=== PATIENT | male | born 1970 | race Caucasian/White ===

== ENCOUNTER 2017-05-09 09:50 | Emergency (ER) | payer BC ==
[2017-05-09 10:14] VITALS: BP 122/85
--- NOTE | 2017-05-09 10:31 | EDM.PDOC ---
ED HPI GENERAL MEDICAL PROBLEM - General Chief Complaint: Upper Extremity Injury/Pain Stated Complaint: L FINGER INJURY Time Seen by Provider: 05/09/17 10:30 Source of Information: Reports: Patient - History of Present Illness INITIAL COMMENTS - FREE TEXT/NARRATIVE: Patient is here accompanied by his for evaluation of an injury to his left ring finger. He states that last night he got his hand pinched between a cow and a wooden post, he did have a sliver in his pinky which she removed without difficulty but this is not painful at all today. He states that he is having pain to his left distal ring finger and DIPJ and he feels like there is a foreign body in there. He states that it is painful and stiff when he moves it. He does feel that it is swollen. He is not up-to-date on his tetanus. Left 4-Ring finger Pain Score (Numeric/FACES): 1 - Related Data Allergies Allergy/AdvReac Type Severity Reaction Status Date / Time No Known Allergies Allergy Verified 05/09/17 10:14 Home Meds: Home Meds Albuterol [Ventolin HFA] 2 puff INH DAILY PRN 11/24/14 [History] Cetirizine [ZyrTEC] 1 tab PO DAILY 11/24/14 [History] Montelukast [Singulair] 1 tab PO DAILY 11/24/14 [History] Cephalexin [Keflex] 500 mg PO BID #10 capsule 05/09/17 [Rx] Past Medical History - Past Health History Medical/Surgical History: Denies Medical/Surgical History HEENT History: Reports: Impaired Vision Respiratory History: Reports: Asthma Social & Family History - Family History Family Medical History: Noncontributory - Tobacco Use Smoking Status *Q: Never Smoker - Recreational Drug Use Recreational Drug Use: No Review of Systems - Review of Systems Review Of Systems: See Below Constitutional: Denies: Chills, Fever, Weakness Cardiovascular: Reports: No Symptoms GI/Abdominal: Reports: No Symptoms Musculoskeletal: Reports: Other (Pain to left ring finger) Skin: Reports: Other (Puncture wound to left ring finger) Neurological: Reports: No Symptoms Psychiatric: Reports: No Symptoms ED EXAM, GENERAL - Physical Exam Exam: See Below Exam Limited By: No Limitations General Appearance: Alert, WD/WN, No Apparent Distress Cardiovascular: Normal Peripheral Pulses Peripheral Pulses: 2+: Radial (L) Extremities: Other (Mild swelling to distal left ring finger without warmth or erythema. There is a tiny eschar over what he states was a puncture. Patient has limited flexion at the DIPJ of his left ring finger.) Neurological: Alert, Oriented, No Motor/Sensory Deficits Skin Exam: Warm, Dry, Wound/Incision (Very tiny puncture woun to pad of left ring finger without surrounding warmth or erythema. There is no drainage.) Course - Vital Signs Last Recorded V/S: Last Vital Signs Temp 98.9 F 05/09/17 10:00 Pulse 59 L 05/09/17 10:00 Resp 16 05/09/17 10:00 BP 122/85 05/09/17 10:00 Pulse Ox 96 05/09/17 10:00 - Orders/Labs/Meds Orders: Active Orders 24 hr Category Date Time Status Vaccines to be Administered [RC] PER UNIT ROUTINE Care 05/09/17 10:59 Active Fingers Fourth Digit Lt F3 [CR] Stat Exams 05/09/17 10:59 Taken Meds: Medications Discontinued Medications Generic Name Dose Route Start Last Admin Trade Name Freq PRN Reason Stop Dose Admin Diphtheria/Tetanus/Acell Pertussis 0.5 ml 05/09/17 10:59 Adacel IM 05/09/17 11:00 .ONCE ONE - Re-Assessments/Exams Free Text/Narrative Re-Assessment/Exam: Small puncture to left ring finger but no foreign body is visible or palpable. Will get x-ray to further assess, though if he suspects that this is wood it may be difficult to visualize on x-ray. Patient declines pain medication. Tdap booster will be given. 05/09/17 11:05 No foreign body or fracture visualized on x-ray of left fourth finger. Official radiologist report is pending. I do not palpate foreign body to do not feel that exploring the wound is indicated. Due to the nature of injury will put patient on Keflex 5 days. Recommend Epsom salt soaks. Wound care instructions discussed and monitoring for infection was discussed and patient, he and his verbalized understanding of this. Ibuprofen as needed for pain. He will follow-up with his primary provider or return to the emergency room if needed. 05/09/17 11:57 Departure - Departure Time of Disposition: 11:47 Disposition: Home, Self-Care 01 Condition: Good Clinical Impression: Finger injury Qualifiers: Encounter type: initial encounter Laterality: left Qualified Code(s): S69.92XA - Unspecified injury of left wrist, hand and finger(s), initial encounter - Discharge Information Prescriptions: Cephalexin [Keflex] 500 mg PO BID #10 capsule Referrals: Kingsley Mcclain MD [Primary Care Provider] - Forms: ED Department Discharge Additional Instructions: Keep area clean and dry. Take full course of antibiotics, twice daily for 5 days. I recommend a probiotic or yogurt with this to prevent diarrhea. Ibuprofen 600 mg 3 times daily as needed. Soak in Epsom salts soaks in warm water 15 minutes twice daily. Follow-up through primary provider or return to emergency room if symptoms persist or any worsening or you have a fever greater than 101F. - My Orders Last 24 Hours: My Active Orders 05/09/17 10:59 Vaccines to be Administered [RC] PER UNIT ROUTINE Fingers Fourth Digit Lt F3 [CR] Stat - Assessment/Plan Last 24 Hours: My Active Orders 05/09/17 10:59 Vaccines to be Administered [RC] PER UNIT ROUTINE Fingers Fourth Digit Lt F3 [CR] Stat
[2017-05-09] MEDS ORDERED: Diphtheria,Pertussis(Acell),Tetanus Vaccine 0.5 ML SDV IM ONE (10:59)
--- NOTE | 2017-05-11 16:54 | CR ---
Left fourth finger: Four views centered to the left fourth finger were obtained. Comparison: No previous hand or finger study. Soft tissue swelling is identified. No radiopaque foreign object is seen. No fracture or other bony abnormality is identified. Impression: 1. Soft tissue swelling. No bony abnormality is identified on left fourth finger study. Diagnostic code #3
== END 2017-05-09 12:03 | disposition home or self-care (01) ==
LOC: JD.ED 09:50
DX: S61.235A Puncture wound without foreign body of left ring finger without damage to nail, initial encounter (principal); J45.909 Unspecified asthma, uncomplicated; Z23 Encounter for immunization; Z79.899 Other long term (current) drug therapy; W23.0XXA Caught, crushed, jammed, or pinched between moving objects, initial encounter
CPT/HCPCS: 73140-26-F3; 73140-F3; 90471; 90715; 99283; 99283-25

== ENCOUNTER 2020-04-30 09:55 | Emergency (ER) | payer BC ==
--- NOTE | 2020-04-30 10:28 | EDM.PDOC ---
ED HPI GENERAL MEDICAL PROBLEM - General Chief Complaint: Respiratory Problem Stated Complaint: ASTHMA Time Seen by Provider: 04/30/20 10:22 Source of Information: Reports: Patient History Limitations: Reports: No Limitations - History of Present Illness INITIAL COMMENTS - FREE TEXT/NARRATIVE: 49-year-old male who suffers from asthma presents to the ED with an asthma exacerbation. 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 Patient usually uses albuterol inhaler on a daily basis. Lately has not been working very well. He could not sleep at all last night due to congestion and wheezing. Cough is bringing up some white sputum. No hemoptysis. He has mild nasal congestion. No known COVID-19 illness. He has had no fever or chills. Usually experiences a flareup once or twice per year. Usually requires steroids to settle things down. Onset: Gradual Onset Date: 04/27/20 Duration: Day(s):, Getting Worse Location: Reports: Chest (Just of breath with wheezing.) Quality: Reports: Other (Dyspnea and wheezing) Severity: Moderate (Moderate to severe at times) Improves with: Reports: Rest Worsens with: Reports: Other Context: Reports: Other (History of asthma). Denies: Activity, Exercise, Lifting, Sick Contact (Assertion.), Trauma Associated Symptoms: Reports: Cough, cough w sputum (Sputum. No hemoptysis), Malaise, Shortness of Breath. Denies: Confusion (. 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 Treatments, Other (see below) (Xopenex and albuterol inhalers.) - Related Data Allergies Allergy/AdvReac Type Severity Reaction Status Date / Time No Known Allergies Allergy Verified 04/30/20 10:21 Home Meds: Home Meds Albuterol [Ventolin HFA] 2 puff INH DAILY PRN 11/24/14 [History] Cetirizine [ZyrTEC] 1 tab PO DAILY 11/24/14 [History] Montelukast [Singulair] 1 tab PO DAILY 11/24/14 [History] Doxycycline [Vibra-Tabs] 100 mg PO Q12HR #20 tab 04/30/20 [Rx] Fluticasone/Vilanterol [Breo Ellipta 100-25 MCG Inhalation Kit] 1 puff INH DAILY 04/30/20 [History] Levalbuterol Tartrate [Xopenex HFA] 2 puff INH Q6HR PRN 04/30/20 [History] predniSONE [Prednisone] 20 mg PO ASDIRECTED #18 tablet 04/30/20 [Rx] Past Medical History - Past Health History Medical/Surgical History: Denies Medical/Surgical History HEENT History: Reports: Impaired Vision Respiratory History: Reports: Asthma Social & Family History - Family History Family Medical History: No Pertinent Family History - Living Situation & Occupation Living situation: Reports: Occupation: Employed (Self Employed [employer] ED ROS GENERAL - Review of Systems Review Of Systems: See Below Constitutional: Reports: Fatigue. Denies: Fever, Chills, Malaise, Weakness, Night Sweats, Diaphoresis, Decreased Appetite (Sleeping all night.), Weight Loss HEENT: Reports: Other Respiratory: Reports: Shortness of Breath, Wheezing, Cough. Denies: Pleuritic Chest Pain, Hemoptysis (80 sputum), Other Cardiovascular: Reports: Dyspnea on Exertion. Denies: Chest Pain, Blood Pressure Problem, Claudication, Edema, Lightheadedness, Orthopnea, Palpitations Endocrine: Reports: Fatigue GI/Abdominal: Reports: No Symptoms : Reports: No Symptoms Musculoskeletal: Reports: Back Pain, Joint Pain Skin: Reports: No Symptoms (Hips knees and shoulders at times.) Neurological: Reports: No Symptoms Psychiatric: Reports: No Symptoms Hematologic/Lymphatic: Reports: No Symptoms Immunologic: Reports: No Symptoms ED EXAM, GENERAL - Physical Exam Exam: See Below Exam Limited By: No Limitations General Appearance: Alert, WD/WN, Mild Distress, Other (Temperature is 36.6 degrees heart rate 72 in sinus respiratory is 15. BP is 130/83 with 96% O2 sats.) Eye Exam: Bilateral Eye: Normal Inspection, PERRL (No scleral icterus or blepharal pallor.) Ears: Normal TMs Nose: Other (He does have bilateral turbinate swelling worse on the right as compared to the left particular the superior mid middle turbinates.) Throat/Mouth: Normal Inspection ( No mucus appreciated), Normal Lips, Normal Teeth, Normal Oropharynx Head: Atraumatic, Normocephalic Neck: Normal Inspection, Supple, Non-Tender, Full Range of Motion. No: Lymphadenopathy (L), Lymphadenopathy (R) Respiratory/Chest: No Respiratory Distress, No Accessory Muscle Use, Decreased Breath Sounds, Wheezing (Fuhs wheezing through all 5 lung masters. Worse in the upper and lower lung masters posteriorly.). No: Lungs Clear Cardiovascular: Normal Peripheral Pulses, Regular Rate, Rhythm, No Edema, No Gallop, No Murmur, No Rub Peripheral Pulses: 3+: Carotid (L), Carotid (R), Posterior Tibial (L), Posterior Tibial (R), Dorsalis Pedis (L), Dorsalis Pedis (R) GI/Abdominal: Normal Bowel Sounds, Soft, Non-Tender, No Organomegaly, No Mass, Pelvis Stable Back Exam: Normal Inspection, Full Range of Motion. No: CVA Tenderness (L), CVA Tenderness (R) Extremities: Normal Inspection, Normal Range of Motion, Non-Tender, No Pedal Edema Neurological: Alert, Oriented, CN II-XII Intact, Normal Cognition Psychiatric: Normal Affect, Normal Mood Skin Exam: Warm, Dry, Intact, Normal Color, No Rash Course - Vital Signs Last Recorded V/S: Last Vital Signs Temp 36.6 C 04/30/20 10:18 Pulse 72 04/30/20 10:18 Resp 15 04/30/20 10:18 BP 130/83 04/30/20 10:18 Pulse Ox 94 L 04/30/20 10:42 - Orders/Labs/Meds Orders: Active Orders 24 hr Category Date Time Status RT Aerosol Therapy [RC] ASDIRECTED Care 04/30/20 10:29 Active Chest 1V Frontal [CR] Stat Exams 04/30/20 10:28 Taken Albuterol/Ipratropium [DuoNeb 3.0-0.5 MG/3 ML] Med 04/30/20 10:29 Active 3 ml NEB Q4H PRN Medication Orders Albuterol/Ipratropium (Duoneb 3.0-0.5 Mg/3 Ml) 3 ml NEB Q4H PRN PRN Reason: Shortness Of Breath/wheezing Last Admin: 04/30/20 10:41 Dose: 3 ml Documented by: IAN Meds: Medications Generic Name Dose Route Start Last Admin Trade Name Freq PRN Reason Stop Dose Admin Albuterol/Ipratropium 3 ml 04/30/20 10:29 04/30/20 10:41 Duoneb 3.0-0.5 Mg/3 Ml NEB 3 ml Q4H PRN Administration Shortness Of Breath/wheezing Discontinued Medications Generic Name Dose Route Start Last Admin Trade Name Freq PRN Reason Stop Dose Admin Prednisone 30 mg 04/30/20 10:29 04/30/20 10:37 Prednisone PO 04/30/20 10:30 30 mg ONETIME ONE Administration - Radiology Interpretation Free Text/Narrative:: 49-year-old male presents to the ED with an exacerbation of asthma gradually occurring over the last 3 to 4 days. 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 Exposure to a large amount of dust" dander from the cows. He has a history of chronic asthma and uses albuterol almost on a daily basis. Up all night last night with no relief with multiple uses of Xopenex and albuterol inhalers. No noted fever or chills. Lungs reveal diffuse wheezing throughout all lung masters. Ear nose and throat exam are is is otherwise normal other than chronic allergic rhinitis. Plan DuoNeb. Prednisone 30 mg p.o. 1 view chest x-ray to be done. - Re-Assessments/Exams Free Text/Narrative Re-Assessment/Exam: 04/30/20 11:57 x-ray 1 view is finally done. It is revealing some perihilar infiltrates bilaterally but no definitive pneumonia. Slight hyperinflation of the lung masters compatible with asthma. Patient does have much better air entry to the lower lung masters after the DuoNeb treatment. He will be discharged home on prednisone 20 mg twice daily for the next 6 days and then once in the morning only for another 6 days. He has adequate inhalers at this time. He will also be placed on doxycycline 100 mg twice daily for the next 10 days at his request. Departure - Departure Time of Disposition: 11:58 Disposition: Home, Self-Care 01 Condition: Fair Clinical Impression: Exacerbation of asthma Qualifiers: Asthma severity: moderate Asthma persistence: persistent Qualified Code(s): J45.41 - Moderate persistent asthma with (acute) exacerbation - Discharge Information *PRESCRIPTION DRUG MONITORING PROGRAM REVIEWED*: Not Applicable *COPY OF PRESCRIPTION DRUG MONITORING REPORT IN PATIENT CONG: Not Applicable Prescriptions: predniSONE [Prednisone] 20 mg PO ASDIRECTED #18 tablet Doxycycline [Vibra-Tabs] 100 mg PO Q12HR #20 tab Referrals: Kingsley Mcclain MD [Primary Care Provider] - Forms: ED Department Discharge Additional Instructions: Evaluation in the emergency room today in regards to an acute exacerbation of asthma. You feel that has been precipitated by exposure to excessive dust and dander from a cattle that you were working 3 to 4 days ago. Chest x-ray does not reveal any signs of pneumonia. Air entry was improved to lung masters with DuoNeb treatment in the ED. You will need to continue to use your albuterol or Xopenex inhaler 2 puffs every 3 hours as needed for relief of wheezing and/or shortness of breath. You were started on prednisone in the emergency room today 30 mg were given. Next dose is 20 mg after supper tonight. Also start doxycycline 100 mg twice daily and take the first dose when she get him and 1 before bedtime tonight. This should be taken twice daily for the next 10 days. Expect gradual improvement over the next 48 hours. If not you should be seen again. Sepsis Event Note (ED) - Evaluation Sepsis Screening Result: No Definite Risk - Focused Exam Vital Signs: Vital Signs Temp Pulse Resp BP Pulse Ox Pulse Ox 04/30/20 10:42 94 L 04/30/20 10:18 36.6 C 72 15 130/83 96 - My Orders Last 24 Hours: My Active Orders 04/30/20 10:28 Chest 1V Frontal [CR] Stat 04/30/20 10:29 RT Aerosol Therapy [RC] ASDIRECTED Albuterol/Ipratropium [DuoNeb 3.0-0.5 MG/3 ML] 3 ml NEB Q4H PRN - Assessment/Plan Last 24 Hours: My Active Orders 04/30/20 10:28 Chest 1V Frontal [CR] Stat 04/30/20 10:29 RT Aerosol Therapy [RC] ASDIRECTED Albuterol/Ipratropium [DuoNeb 3.0-0.5 MG/3 ML] 3 ml NEB Q4H PRN
[2020-04-30] MEDS ORDERED: predniSONE 20 MG Tab PO ONE (10:29)
[2020-04-30] MEDS ORDERED: Albuterol/Ipratropium 3.0-0.5 MG/3 ML Neb Soln NEB PRN (10:29)
[2020-04-30 12:32] VITALS: BP 120/79; PULSE 63
--- NOTE | 2020-04-30 12:33 | CR ---
Chest: Portable view of the chest was obtained. Comparison: Prior chest x-ray of 07/12/10. Heart size and mediastinum are normal. Lungs are clear with no acute parenchymal change. No acute osseous finding is appreciated. Impression: 1. Nothing acute is seen on portable chest x-ray. Diagnostic code #1
== END 2020-04-30 12:08 | disposition home or self-care (01) ==
LOC: JD.ED 09:55
DX: J45.41 Moderate persistent asthma with (acute) exacerbation (principal)
CPT/HCPCS: 71045; 94640; 99285; J7512; 99284; J7620-GY

== ENCOUNTER 2021-02-17 10:08 | Emergency (ER) | payer BC ==
[2021-02-17 10:16] VITALS: BP 138/83; PULSE 91
[2021-02-17 10:56] LABS: CORONAVIRUS COVID-19 NAA NEGATIVE (NEGATIVE)
--- NOTE | 2021-02-17 11:02 | EDM.PDOC ---
ED HPI GENERAL MEDICAL PROBLEM - General Chief Complaint: Respiratory Problem Stated Complaint: SOB Time Seen by Provider: 02/17/21 10:44 Source of Information: Reports: Patient History Limitations: Reports: No Limitations - History of Present Illness INITIAL COMMENTS - FREE TEXT/NARRATIVE: The patient presents with a cough, congestion, runny nose, sore throat and shortness of breath. He has a history of asthma and he was around some sick grand children last week. He has no fever or chills. Onset: Gradual Duration: Day(s): Improves with: Reports: None Worsens with: Reports: None Associated Symptoms: Reports: Cough, Shortness of Breath. Denies: Chest Pain, Fever/Chills, Headaches, Nausea/Vomiting - Related Data Allergies Allergy/AdvReac Type Severity Reaction Status Date / Time No Known Allergies Allergy Verified 02/17/21 10:16 Home Meds: Home Meds Albuterol [Ventolin HFA] 2 puff INH DAILY PRN 11/24/14 [History] Cetirizine [ZyrTEC] 1 tab PO DAILY 11/24/14 [History] Montelukast [Singulair] 1 tab PO DAILY 11/24/14 [History] Doxycycline [Vibra-Tabs] 100 mg PO Q12HR #20 tab 04/30/20 [Rx] Fluticasone/Vilanterol [Breo Ellipta 100-25 MCG Inhalation Kit] 1 puff INH DAILY 04/30/20 [History] Levalbuterol Tartrate [Xopenex HFA] 2 puff INH Q6HR PRN 04/30/20 [History] predniSONE [Prednisone] 20 mg PO ASDIRECTED #18 tablet 04/30/20 [Rx] Azithromycin [Zithromax] 250 mg PO DAILY #6 tab 02/17/21 [Rx] predniSONE [Prednisone] 40 mg PO DAILY #10 tablet 02/17/21 [Rx] Past Medical History - Past Health History Medical/Surgical History: Denies Medical/Surgical History HEENT History: Reports: Impaired Vision Respiratory History: Reports: Asthma Social & Family History - Family History Family Medical History: No Pertinent Family History - Tobacco Use Tobacco Use Status *Q: Never Tobacco User Second Hand Smoke Exposure: No - Caffeine Use Caffeine Use: Reports: None - Recreational Drug Use Recreational Drug Use: No - Living Situation & Occupation Living situation: Reports: Occupation: Employed (Self Employed [employer].) ED ROS GENERAL - Review of Systems Review Of Systems: See Below Constitutional: Reports: No Symptoms HEENT: Reports: Other (congestion and runny nose) Respiratory: Reports: Shortness of Breath, Wheezing, Cough Cardiovascular: Reports: No Symptoms Endocrine: Reports: No Symptoms GI/Abdominal: Reports: No Symptoms : Reports: No Symptoms ED EXAM, GENERAL - Physical Exam Exam: See Below Exam Limited By: No Limitations General Appearance: Alert, No Apparent Distress Ears: Normal External Exam Nose: Normal Inspection Throat/Mouth: Normal Inspection Head: Atraumatic, Normocephalic Neck: Normal Inspection, Supple, Non-Tender Respiratory/Chest: No Respiratory Distress, Wheezing (mild wheeze to the lower lung masters) Cardiovascular: Regular Rate, Rhythm, No Edema, No Murmur GI/Abdominal: Soft, Non-Tender, No Organomegaly, No Mass Extremities: Normal Inspection Neurological: Alert, Oriented, No Motor/Sensory Deficits Course - Vital Signs Last Recorded V/S: Last Vital Signs Temp 97.4 F 02/17/21 10:15 Pulse 91 02/17/21 10:15 Resp 20 02/17/21 10:15 BP 138/83 02/17/21 10:15 Pulse Ox 93 L 02/17/21 10:15 - Orders/Labs/Meds Labs: Laboratory Tests 02/17/21 Range/Units 10:15 Influenza Type A RNA Negative (NEGATIVE) Influenza Type B RNA Negative (NEGATIVE) SARS-CoV-2 RNA (FAWAD) Negative (NEGATIVE) - Re-Assessments/Exams Free Text/Narrative Re-Assessment/Exam: 02/17/21 10:59 I checked him for COVID and influenza and they were both negative. He has some bronchitis. I will get him on some zithromax and prednisone. Departure - Departure Time of Disposition: 11:00 Disposition: Home, Self-Care 01 Condition: Good Clinical Impression: Acute bronchitis Qualifiers: Bronchitis organism: other organism Qualified Code(s): J20.8 - Acute bronchitis due to other specified organisms - Discharge Information *PRESCRIPTION DRUG MONITORING PROGRAM REVIEWED*: Not Applicable *COPY OF PRESCRIPTION DRUG MONITORING REPORT IN PATIENT CONG: Not Applicable Prescriptions: predniSONE [Prednisone] 40 mg PO DAILY #10 tablet Azithromycin [Zithromax] 250 mg PO DAILY #6 tab Referrals: Kingsley Mcclain MD [Primary Care Provider] - 1 Week Additional Instructions: Take the medications as prescribed. Follow up with your provider as needed. Please return if you are worse. Sepsis Event Note (ED) - Focused Exam Vital Signs: Vital Signs Temp Pulse Resp BP Pulse Ox 02/17/21 10:15 97.4 F 91 20 138/83 93 L
== END 2021-02-17 11:06 | disposition home or self-care (01) ==
LOC: JD.ED 10:08
DX: J20.8 Acute bronchitis due to other specified organisms (principal); Z20.822 Contact with and (suspected) exposure to COVID-19
CPT/HCPCS: 0240U; 99284

== ENCOUNTER 2022-02-13 22:48 | Emergency (ER) | payer BC ==
[2022-02-13 23:21] VITALS: BP 129/73; PULSE 91
[2022-02-13] MEDS ORDERED: Sodium Chloride 0.9% 10 ML Syringe FLUSH PRN (23:24)
[2022-02-13] MEDS ORDERED: methylPREDNISolone Sodium Succinate 125 MG/2 ML SDV IVPUSH ONE (23:24)
[2022-02-14 00:31] LABS: CORONAVIRUS COVID-19 NAA NEGATIVE (NEGATIVE)
[2022-02-14] MEDS ORDERED: Albuterol/Ipratropium 3.0-0.5 MG/3 ML Neb Soln NEB ONE (03:57)
== END 2022-02-14 05:21 | disposition home or self-care (01) ==
LOC: JD.ED 22:48
DX: J45.41 Moderate persistent asthma with (acute) exacerbation (principal); J10.1 Influenza due to other identified influenza virus with other respiratory manifestations; Z91.013 Allergy to seafood; Z79.899 Other long term (current) drug therapy; Z20.822 Contact with and (suspected) exposure to COVID-19
CPT/HCPCS: 0240U; 36415; 71045; 80053; 85025; 94640; 96374; 99285; J2930; J3490; J7620-GY

== ENCOUNTER 2023-10-09 08:36 | Day surgery (SDC) | payer BC ==
[~2023-10-09 08:36] MED LIST: Sodium Chloride 0.9% 10 ML Syringe FLUSH PRN; Sodium Chloride 0.9% 10 ML Syringe FLUSH SCH
[2023-10-09] MEDS: Lactated Ringers 1,000 ML IV SCH (08:50)
[2023-10-09] MEDS ORDERED: Lidocaine 1% 4 ML ONE (08:54)
[2023-10-09] MEDS ORDERED: fentaNYL 100 MCG/2 ML SDV ONE (08:54)
[2023-10-09] MEDS ORDERED: Propofol 200 MG/20 ML SDV ONE ×2 (08:54→09:00)
[2023-10-09 10:34] VITALS: BP 111/73; PULSE 62
== END 2023-10-09 10:20 | disposition home or self-care (01) ==
LOC: JD.SDS 08:36
PROVIDERS: ATTEND Surgery
DX: Z12.11 Encounter for screening for malignant neoplasm of colon (principal); J45.50 Severe persistent asthma, uncomplicated; E78.00 Pure hypercholesterolemia, unspecified; Z79.899 Other long term (current) drug therapy; Z88.2 Allergy status to sulfonamides; Z91.018 Allergy to other foods; Z91.013 Allergy to seafood
CPT/HCPCS: 45378; J2704; J3010; J7120; J3490